=== PATIENT | female | born 1995 | race Caucasian/White ===

== ENCOUNTER 2017-04-19 11:39 | Emergency (ER) | payer MEDICAID ==
[~2017-04-19] VITALS: Wt 48.5 kg
--- NOTE | 2017-04-19 12:46 | ERD ---
ER Documentation Chief Complaint Date/Time DATE: 04/19/17 TIME: 12:44 Chief Complaint MILD VAG BLEEDING x 1 MO, HPI Patient is a 22-year-old female with PMHX s/p appendectomy who presents to the emergency department with concerns of vaginal bleeding ongoing for the last month and a half. Patient states that she has been using 2-3 pads per day. Patient reports bright versus dark bleeding. Patient also reports pelvic pain. Patient states she is receiving the Depo-Provera injections every month. Patient last received Depo-Provera on February 05, 2017. Patient states that she feels as "something is moving inside of her". Patient denies any fevers, chills , nausea, vomiting. Patient states her last normal menstrual period was on January. Patient unsure if she is . Patient denies any excessive or abnormal vaginal discharge. Patient denies any concerns of STDs. ROS All systems reviewed and are negative except as per history of present illness. Medications Home Meds Active Scripts Ibuprofen* (Motrin*) 600 Mg Tab, 600 MG PO Q6, #30 TAB Prov:LINNEA CH PA-C 04/19/17 Allergies Allergies: Coded Allergies: No Known Allergy (Unverified , 04/19/17) PMhx/Soc History of Surgery: Yes (Appendectomy.) Anesthesia Reaction: No Hx Neurological Disorder: No Hx Respiratory Disorders: No Hx Cardiac Disorders: No Hx Psychiatric Problems: No Hx Miscellaneous Medical Probl: No Hx Alcohol Use: No Hx Substance Use: No Hx Tobacco Use: No Smoking Status: Never smoker Physical Exam Vitals Vital Signs Date Time Temp Pulse Resp B/P Pulse Ox O2 Delivery O2 Flow Rate FiO2 04/19/17 15:26 98.3 72 16 122/63 100 Room Air 04/19/17 11:46 98.1 67 18 127/59 100 Physical Exam GENERAL: Well-developed, well-nourished female. Appears in no acute distress. HEAD: Normocephalic, atraumatic. EYES: Pupils are equally reactive bilaterally. EOMs grossly intact. No conjunctival erythema. ENT: Moist mucous membranes. No uvula deviation. No kissing tonsils. NECK: Supple. No meningismus. Normal range of motion of the neck. LUNG: Clear to auscultation bilaterally. No rhonchi, wheezing, rales or coarse breath sounds. HEART: Regular rate and rhythm. No murmurs, rubs or gallops. ABDOMEN:. Soft, and nondistended. Tender to palpation in suprapubic region and bilateral lower quadrants. Positive bowel sounds in all four quadrants. No rebound tenderness, no guarding. (-) McBurney's point tenderness. No CVA tenderness. BACK: No midline tenderness. EXTREMITIES: Equal pulses bilaterally. No peripheral clubbing, cyanosis or edema. No unilateral leg swelling. NEUROLOGIC: Alert and oriented. Moving all four extremities without any difficulty. Normal speech. Steady gait. SKIN: Normal color. Warm and dry. No rashes or lesions. Result Diagram: 04/19/17 1305 Results 24 hrs Laboratory Tests Test 04/19/17 12:58 04/19/17 13:05 Bedside Urine pH (LAB) 7.0 Bedside Urine Protein (LAB) Trace Bedside Urine Glucose (UA) Negative Bedside Urine Ketones (LAB) Trace Bedside Urine Blood 2+ Bedside Urine Nitrite (LAB) Negative Bedside Urine Leukocyte Esterase (L Negative White Blood Count 7.810^3/ul Red Blood Count 4.8910^6/ul Hemoglobin 12.3g/dl Hematocrit 39.1% Mean Corpuscular Volume 80.0fl Mean Corpuscular Hemoglobin 25.2pg Mean Corpuscular Hemoglobin Concent 31.5g/dl Red Cell Distribution Width 14.9% Platelet Count 40956^3/UL Mean Platelet Volume 13.4fl Neutrophils % 48.3% Lymphocytes % 42.2% Monocytes % 7.2% Eosinophils % 1.4% Basophils % 0.8% Nucleated Red Blood Cells % 0.0/100WBC Neutrophils # 3.810^3/ul Lymphocytes # 3.310^3/ul Monocytes # 0.610^3/ul Eosinophils # 0.110^3/ul Basophils # 0.110^3/ul Nucleated Red Blood Cells # 0.010^3/ul Procedures/MDM ED COURSE: The patient was stable throughout ED course. I kept the patient and/or family informed of laboratory and diagnostic imaging results throughout the ED course. DIAGNOSTIC IMAGING: Read by radiologist. DIAGNOSTIC IMAGING REPORT Patient: EUSEBIO ESPINOZA : 1995 Age: 22 Sex: F MR #: [id number] DOS: 04/19/17 1258 Ordering MD: LINNEA CH PA-C Location: [facility]TE Room/Bed: PROCEDURE: US Pelvis. CLINICAL INDICATION: 22-year-old female with pelvic pain. Vaginal bleeding for 1.5 months. TECHNIQUE: Multiple sonographic images of the pelvis were obtained utilizing a transabdominal and endovaginal technique. The images were reviewed on a PACS workstation. COMPARISON: None. FINDINGS: The uterus is visualized and measures 6.7 cm sagittal by 4.4 cm AP by 5.6 cm transverse.. The endometrial echo complex is normal, contains a small amount of fluid and measures 0.65 cm. There is no evidence for free fluid. The right ovary has a normal echotexture and measures 2.2 x 1.4 x 1.4 cm . The left ovary has a normal echotexture and measures to point a by 2.5 by 2 point a by 1.5 cm No adnexal masses are noted. IMPRESSION: 1. A small amount of fluid is noted in the endometrial cavity. 2. Otherwise, unremarkable pelvic not of the sonogram. 3. Blood flow to the ovaries is normal. The ovaries are unremarkable. No abnormal adnexal mass is present. RPTAT:AAJJ Physician Chalino Date Time Electronically viewed and signed by Physician Chalino on 04/19/2017 14:30 JM/ CC: LINNEA CH PA-C MEDICAL DECISION MAKING: This is a 22-year-old female presents with vaginal bleeding for the last month and a half. She does report intermittent pelvic pain. Vital signs were reviewed. Patient was afebrile. Urine test was negative. CBC showed no evidence of systemic infection or severe anemia. UA showed no signs of acute infection or hematuria. Pelvic US showed A small amount of fluid is noted in the endometrial cavity.Otherwise, unremarkable pelvic not of the sonogram. Blood flow to the ovaries is normal. The ovaries are unremarkable. No abnormal adnexal mass is present. Given these findings, the patient's presentation is most consistent with dysfunctional uterine bleeding. I have a much lower clinical concern for anemia , , ectopic , ovarian torsion, PID, tubo-ovarian abscess, fibroids, endometriosis, vulvovaginitis, nephrolithiasis, pyelonephritis, UTI, appendicitis, diverticulitis, bowel obstruction. PRESCRIPTIONS: Ibuprofen DISCHARGE: At this time, patient is stable for discharge and outpatient management. I have instructed the patient to follow-up with his/her primary care physician in 1-2 days. Patient advised to follow up with OBGYN in the next 1-2 days. Referral list provided. I have instructed the patient to promptly return to the ER at any time for any new or worsening symptoms including increased pain, nausea, vomiting, vaginal bleeding, weakness or fever. The patient and/or family expressed understanding of and agreement with this plan. All questions were answered. Home care instructions were provided. Departure Diagnosis: Primary Impression: Vaginal bleeding Condition: Stable Patient Instructions: Dysfunctional Uterine Bleeding Referrals: [facility] YOU HAVE RECEIVED A MEDICAL SCREENING EXAM AND THE RESULTS INDICATE THAT YOU DO NOT HAVE A CONDITION THAT REQUIRES URGENT TREATMENT IN THE EMERGENCY DEPARTMENT. FURTHER EVALUATION AND TREATMENT OF YOUR CONDITION CAN WAIT UNTIL YOU ARE SEEN IN YOUR DOCTORS OFFICE WITHIN THE NEXT 1-2 DAYS. IT IS YOUR RESPONSIBILITY TO MAKE AN APPOINTMENT FOR FOLOW-UP CARE. IF YOU HAVE A PRIMARY DOCTOR --you should call your primary doctor and schedule an appointment IF YOU DO NOT HAVE A PRIMARY DOCTOR YOU CAN CALL OUR PHYSICIAN REFERRAL HOTLINE AT IF YOU CAN NOT AFFORD TO SEE A PHYSICIAN YOU CAN CHOSE FROM THE FOLLOWING [facility] [address] [facility]. [facility] [place] [facility] [address] [facility]. [facility] [address] [facility]. [facility] [address] [facility] [address] [facility]. [facility]. [address] [facility] [facility] YOU HAVE RECEIVED A MEDICAL SCREENING EXAM AND THE RESULTS INDICATE THAT YOU DO NOT HAVE A CONDITION THAT REQUIRES URGENT TREATMENT IN THE EMERGENCY DEPARTMENT. FURTHER EVALUATION AND TREATMENT OF YOUR CONDITION CAN WAIT UNTIL YOU ARE SEEN IN YOUR DOCTORS OFFICE WITHIN THE NEXT 1-2 DAYS. IT IS YOUR RESPONSIBILITY TO MAKE AN APPOINTMENT FOR FOLOW-UP CARE. IF YOU HAVE A PRIMARY DOCTOR --you should call your primary doctor and schedule and appointment IF YOU DO NOT HAVE A PRIMARY DOCTOR YOU CAN CALL OUR PHYSICIAN REFERRAL HOTLINE AT . IF YOU CAN NOT AFFORD TO SEE A PHYSICIAN YOU CAN CHOSE FROM THE FOLLOWING [facility] INSTITUTIONS: [facility] [address] [place] [address] [facility] [address] [place] [address] [facility] [address] [place] [address] [employer] [place] [address] [facility] [address] [place] [address]ME [address] [place] [address] [address] [place] [address] [place] [address] [address] [facility] [address] [facility], [address] [address] [address] [place] [address] [facility] [address] [place] [address] [phone] [facility] [address] [address], [facility] [address] [address] [address] [facility] [address], [facility] [address] [address] [facility] [address] [place], [place] [address] Additional Instructions: Call your primary care doctor/OBGYN TOMORROW for an appointment during the next 1-2 days.See the doctor sooner or return here if your condition worsens before your appointment time. See referral list. LINNEA CH PA-C April 19, 2017 12:46
[2017-04-19 12:56] LABS: URINE BLOOD (Dip) POC 2+ (NEGATIVE)
[2017-04-19 13:12] LABS: ADD SCAN DIFF NO
[2017-04-19 13:27] LABS: ABNORMAL IP MESSAGE 1; BASOPHIL # 0.1 10^3/ul (0.0-0.1); BASOPHILS % 0.8 % (0.0-2.0); EOSINOPHILS # 0.1 10^3/ul (0.0-0.5); EOSINOPHILS % 1.4 % (0.0-7.0); HEMATOCRIT 39.1 % (37.0-47.0); HEMOGLOBIN 12.3 g/dl (12.0-16.0); LYMPHOCYTES # 3.3 10^3/ul (0.8-2.9); LYMPHOCYTES % 42.2 % (15.0-51.0); MEAN CORPUSCULAR HEMOGLOBIN 25.2 pg (29.0-33.0); MEAN CORPUSCULAR HGB CONC 31.5 g/dl (32.0-37.0); MEAN PLATELET VOLUME 13.4 fl (7.4-10.4); MONOCYTE # 0.6 10^3/ul (0.3-0.9); MONOCYTES % 7.2 % (0.0-11.0); NEUTROPHIL # 3.8 10^3/ul (1.6-7.5); NEUTROPHILS % 48.3 % (39.0-77.0); PLATELET COUNT 239 10^3/UL (140-415); RED BLOOD COUNT 4.89 10^6/ul (4.20-5.40); RED CELL DISTRIBUTION WIDTH 14.9 % (11.5-14.5); WHITE BLOOD COUNT 7.8 10^3/ul (4.8-10.8)
--- NOTE | 2017-04-19 14:30 | RADRPT ---
PROCEDURE: US Pelvis. CLINICAL INDICATION: 22-year-old female with pelvic pain. Vaginal bleeding for 1.5 months. TECHNIQUE: Multiple sonographic images of the pelvis were obtained utilizing a transabdominal and endovaginal technique. The images were reviewed on a PACS workstation. COMPARISON: None. FINDINGS: The uterus is visualized and measures 6.7 cm sagittal by 4.4 cm AP by 5.6 cm transverse.. The endome trial echo complex is normal, contains a small amount of fluid and measures 0.65 cm. There is no mamta dence for free fluid. The right ovary has a normal echotexture and measures 2.2 x 1.4 x 1.4 cm . Th e left ovary has a normal echotexture and measures to point a by 2.5 by 2 point a by 1.5 cm No adne xal masses are noted. IMPRESSION: 1. A small amount of fluid is noted in the endometrial cavity. 2. Otherwise, unremarkable pelvic not of the sonogram. 3. Blood flow to the ovaries is normal. The ovaries are unremarkable. No abnormal adnexal mass is present. RPTAT:AAJJ Physician Chalino Date Time Electronically viewed and signed by Physician Chalino on 04/19/2017 14:30 /
[2017-04-19] MEDS ORDERED: IBUP-1542 PO (14:41)
[2017-04-19 15:26] VITALS: BP 122/63; PULSE 72; RESP 16; TEMP 98.3
== END 2017-04-19 15:27 | disposition home or self-care (01) ==
LOC: FTE 11:39
DX: N93.9 Abnormal uterine and vaginal bleeding, unspecified (principal); R10.2 Pelvic and perineal pain
CPT/HCPCS: 36415; 76830; 76856; 81003; 85025; Z7502

== ENCOUNTER 2018-04-13 22:47 | Emergency (ER) | END 2018-04-14 02:46 | disposition home or self-care (01) ==